=== PATIENT | male | born 1945 | race Caucasian/White ===

== ENCOUNTER 2019-05-07 06:54 | Day surgery (SDC) | payer OTHER, MEDICARE ==
[2019-05-06 11:33] VITALS: BMI 26.4
--- NOTE | 2019-05-07 07:40 | HP ---
HISTORY OF PRESENT ILLNESS: This is a 73-year-old male with positive fecal testing. The patient had no specific GI symptoms. He had change in bowel habits slightly 3 months ago. He has had a colonoscopy more than 8 years ago. He has no family history of colon cancer. The patient has undergone a stool testing for occult blood, it came back positive. The patient underwent colonoscopy because of the above reason. ALLERGIES: NONE KNOWN. SOCIAL HISTORY: The patient is a former smoker. Drinks alcohol socially. MEDICAL ILLNESSES: 1. Hypertension. 2. Hyperlipidemia. 3. Left heel hernia repair. PHYSICAL EXAMINATION: VITAL SIGNS: Pulse is 70, blood pressure 130/78. HEENT: Conjunctivae clear. NECK: Supple. No adenitis or thyromegaly. CARDIOVASCULAR: First and second heart sounds heard. LUNGS: Clear to auscultation. ABDOMEN: soft, non tender, no masses. ADMITTING DIAGNOSIS: Positive fecal immunochemical testing. PLAN: Colonoscopy. Job ID: [id number] MTDD
--- NOTE | 2019-05-07 13:49 | OP ---
DATE OF PROCEDURE: 05/07/2019 PREOPERATIVE DIAGNOSIS: A 73-year-old male with history of colon polyps and positive FIT test, undergoing colonoscopy. POSTOPERATIVE DIAGNOSES: 1. Markedly tortuous and redundant colon. 2. Polyp at the mouth of the diverticulum or sigmoid colon, removed with biopsy forceps. 3. Small hemorrhoids. PROCEDURE PERFORMED: Colonoscopy with biopsy. DESCRIPTION OF PROCEDURE: The patient was placed on his left lateral position and was given sedation by Anesthesia Department. A rectal exam was done before scope was advanced into the rectum. The patient was noted to have some external hemorrhoids. No other lesions felt. A Pentax video colonoscope was introduced into the rectum and advanced all the way into the cecum. The prep was very good. The mucosa appears normal throughout the colon with normal vascular pattern. The appendiceal orifice, ileocecal wall, and cecum, no pathology seen. Withdrawal of scope in the cecum, ascending colon, hepatic flexure, no lesion seen. In the transverse colon, splenic flexure, no pathology seen. The patient had scattered left-sided diverticula predominantly in the sigmoid colon area. At the mouth of the diverticulum, the patient was found to have a sessile polyp. We removed the polyp with biopsy forceps. Retroflexion of scope in the rectum showed small hemorrhoids. DISCHARGE PLANNING: This is a 73-year-old male, came for a colonoscopy because history of colon polyp and positive FIT. He had a sigmoid polyp removed. He also had scattered left-sided diverticula. DISCHARGE RECOMMENDATIONS: 1. The patient advised to call me if he develops abdominal pain, hematochezia, or fever. 2. In the absence of any of the above symptoms, he will come back to me in 2 weeks. Job ID: [id number]
== END 2019-05-07 10:22 | disposition home or self-care (01) ==
LOC: SDC 06:54
PROVIDERS: ATTEND Internal Medicine Gastroenterology
PROC: 0DBN8ZX Excision of Sigmoid Colon, Via Natural or Artificial Opening Endoscopic, Diagnostic (ICD-10-PCS; principal; 2019-05-07)
DX: K51.418 Inflammatory polyps of colon with other complication (principal); K57.31 Diverticulosis of large intestine without perforation or abscess with bleeding; K64.9 Unspecified hemorrhoids; Q43.8 Other specified congenital malformations of intestine; I10 Essential (primary) hypertension; E78.5 Hyperlipidemia, unspecified; Z79.82 Long term (current) use of aspirin; Z79.899 Other long term (current) drug therapy; Z86.010 Personal history of colon polyps; Z87.891 Personal history of nicotine dependence
CPT/HCPCS: 88305